=== PATIENT | female | born 1945 | race Caucasian/White ===

== ENCOUNTER → 2017-11-21 | Outpatient (CLI) | payer MEDICARE, OTHER ==
[~2017-11-21] MED LIST: ACTOS 30 MG TAB30 MG; B-121000 MCG; CALCIUM 1,0001 EACH PO; COLESTID1 GM; COZAAR100 MG PO; CYMBALTA60 MG PO; DOXYCYCLINE 10100 MG PO; FENOFIBRATE160 MG PO; FISH OIL 1,2001 EAC4; GABAPENTIN100 MG PO; GLUCOPHAGE500 MG PO; GLUCOPHAGE850 MG PO; IRON325 PO; KEFLEX500 M1 PO; LANTUS SUBQ; LOVAZA1000 MG PO; MAGNESIUM OXID200 MG PO; NORCO 5-325 TA1 EACH PO; OMEPRAZOLE20 M2 PO; ONGLYZA2.5 MG PO; PLAVIX 75 MG TA75 M1 PO; PLETAL100 MG PO; PYRIDIUM100 MG PO; TRAMADOL 50 MG50 MG PO; TRAMADOL HCL50 MG PO; VITAMIN B-1000 MCG/2 INJECTION; VYTORIN 10-401 EACH PO; ZOCOR40 MG PO
[2017-11-21 13:04] LABS: CALCIUM 10.5 mg/dL (8.5-10.1); CREATININE 1.2 mg/dL (0.6-1.3); POTASSIUM 4.2 mmol/L (3.5-5.1)
== END ==
LOC: M.LAB 12:28
PROVIDERS: Surgery Vascular Surgery
DX: Z01.89 Encounter for other specified special examinations (principal)

== ENCOUNTER → 2018-03-03 | Outpatient (CLI) | payer MEDICARE, OTHER | LOC: M.RAD 10:00 | DX: Z12.31 Encounter for screening mammogram for malignant neoplasm of breast (principal) ==

== ENCOUNTER 2018-09-04 15:30 | Emergency (ER) | payer OTHER, MEDICARE ==
[~2018-09-04] VITALS: Ht 162.6 cm; Wt 68.0 kg
[~2018-09-04 15:30] MED LIST changes: -DOXYCYCLINE 10100 MG PO; -KEFLEX500 M1 PO
[2018-09-04] MEDS ORDERED: PLAVIX 75 MG TA75 M1 PO (15:44)
[2018-09-04 16:45] LABS: ABSOLUTE BASOPHILS 0.1 thou/uL (0.0-0.2); ABSOLUTE EOSINOPHILS 0.1 thou/uL (0.0-0.7); ABSOLUTE LYMPHOCYTES 0.8 thou/uL (0.8-5.3); ABSOLUTE MONOCYTES 0.7 thou/uL (0.0-1.2); ABSOLUTE NEUTROPHILS 6.6 thou/uL (1.6-8.1); BASOPHILS 0.8 %; EOSINOPHILS 1.4 %; HEMATOCRIT 35.8 % (37.0-47.0); HEMOGLOBIN 11.8 gm/dL (12.0-15.0); LYMPHOCYTES 10.1 %; MCH 30.9 pg (26.0-34.0); MCHC 32.9 g/dL (28.0-37.0); MCV 93.9 fL (80.0-100.0); MONOCYTES 8.2 %; MPV 9.4 fl. (7.2-11.1); NUCLEATED RBCS 0 /100WBC; PLATELET COUNT* 229 thou/uL (150-400); POLYS 79.5 %; RBC 3.81 mil/uL (4.20-5.00); RDW-CV 13.6 % (10.5-14.5); WBC 8.4 thou/uL (4.0-11.0)
[2018-09-04 16:55] LABS: CREATININE 1.6 mg/dL (0.6-1.3); POTASSIUM 4.2 mmol/L (3.5-5.1)
[2018-09-04 16:56] LABS: APTT 24.3 Seconds (25.0-31.3); INR 0.9; PROTIME 9.3 Seconds (9.20-11.50)
[2018-09-04 17:00] LABS: ALBUMIN 3.5 g/dL (3.4-5.0); TOTAL BILIRUBIN 0.1 mg/dL (<0.1-1.0); TOTAL PROTEIN 6.9 g/dL (6.4-8.2)
[2018-09-04] MEDS ORDERED: KEFLEX500 M1 PO (17:52)
[2018-09-04] MEDS ORDERED: DOXYCYCLINE 10100 MG PO (17:57)
[2018-09-04 18:03] VITALS: BP 106/82
== END 2018-09-04 18:04 | disposition home or self-care (01) ==
LOC: M.ERS 15:30
PROVIDERS: Nurse Practitioner Family
DX: S20.211A Contusion of right front wall of thorax, initial encounter (principal); S41.112A Laceration without foreign body of left upper arm, initial encounter; V89.2XXA Person injured in unspecified motor-vehicle accident, traffic, initial encounter; Y93.89 Activity, other specified; Y92.89 Other specified places as the place of occurrence of the external cause; Y99.8 Other external cause status; E11.9 Type 2 diabetes mellitus without complications; K21.9 Gastro-esophageal reflux disease without esophagitis; E78.00 Pure hypercholesterolemia, unspecified

== ENCOUNTER → 2019-11-18 | Outpatient (CLI) | payer MEDICARE, OTHER ==
[~2019-11-18] MED LIST changes: +DOXYCYCLINE 10100 MG PO; +KEFLEX500 M1 PO
== END ==
LOC: M.RAD 14:30
DX: Z12.31 Encounter for screening mammogram for malignant neoplasm of breast (principal)

== ENCOUNTER → 2021-01-31 | Outpatient (CLI) | payer MEDICARE, OTHER | LOC: M.RAD 13:49 | PROVIDERS: ATTEND Hospitalist | DX: Z12.31 Encounter for screening mammogram for malignant neoplasm of breast (principal) ==